=== PATIENT | male | born 1985 | race American Indian/Alaskan Native ===

== ENCOUNTER 2021-02-28 22:15 | Emergency (ER) | payer SELFPAY ==
[2021-03-01 00:14] VITALS: BP 139/71
--- NOTE | 2021-03-01 00:44 | Emergency Department Report ---
ED Rash HPI - HPI Chief Complaint: Skin Rash Stated Complaint: RASH LEFT FOREARM Time Seen by Provider: 03/01/21 00:28 Duration: 5 Days Location: Abdomen, Upper Extremities Suspected Cause: Unknown Rash Symptoms: No Tongue/Oral Swelling, No Breathing Difficulties, No Choking Sensation, No Wheezing/Dyspnea, No Fever Other History: 36-year-old F Armenian male presents emergency department complaining of a pustular/slightly vesicular rash that began on the abdomen while he was in half-way and slowly cleared up and he had been released. Initial presentation was about a year and half ago since that has been having rashes the flareup off and on for unknown reason. 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 He reports very minimal pruritus. The area is irritated with some mild discomfort. No fevers, chills, sweats, no chest pain palpitation hemoptysis hematemesis no hematochezia. ED Review of Systems ROS: Stated complaint: RASH LEFT FOREARM Other details as noted in HPI Comment: All other systems reviewed and negative ED Past Medical Hx - Medications Home Medications: Home Medications Medication Instructions Recorded Confirmed Last Taken Type Chlorhexidine Gluconate [Hibiclens] 10 ml TP BID #240 liquid 03/01/21 Unknown Rx Mupirocin [Bactroban 2%] 15 applic TP TID #30 gm 03/01/21 Unknown Rx Sulfamethoxazole/Trimethoprim 1 each PO BID #20 tablet 03/01/21 Unknown Rx [Bactrim Ds] hydrOXYzine HCL [Atarax] 25 mg PO Q6HR PRN #20 tablet 03/01/21 Unknown Rx Rash Exam - Exam General: Vital signs noted. No distress. Alert and acting appropriately. HEENT: No Periorbital Edema, No Conjuctival Injection, No Chemosis, No Perioral Edema, No Tongue Edema, No Uvular Edema, No Compromised Airway, No Drooling Lungs: Yes Good Air Exchange (Normal Breath Sounds), No Wheezes, No Ronchi, No Stridor, No Cough, No Labored Respirations, No Retractions, No Use of Accessory Muscles, No Other Abnormal Lung Sounds Heart: Yes Regular, No Murmur Skin: Yes Other (Pustular papular rash multiple areas on the arms and abdomen region) Other: Positive: Abdomen Normal, Neurologic Normal, Musculoskeletal Normal ED Course Vital Signs 03/01/21 00:13 Temperature 98.6 F Pulse Rate 86 Respiratory 16 Rate Blood Pressure 139/71 [Left] O2 Sat by Pulse 98 Oximetry Critical care attestation.: If time is entered above; I have spent that time in minutes in the direct care of this critically ill patient, excluding procedure time. ED Disposition Clinical Impression: Rash and nonspecific skin eruption Disposition: - TO HOME OR SELFCARE Is pt being admited?: No Does the pt Need Aspirin: No Condition: Stable Instructions: Rash, Adult, [id number] Prescriptions: hydrOXYzine HCL [Atarax] 25 mg PO Q6HR PRN #20 tablet PRN Reason: Itching Sulfamethoxazole/Trimethoprim [Bactrim Ds] 1 each PO BID #20 tablet Mupirocin [Bactroban 2%] 15 applic TP TID #30 gm Chlorhexidine Gluconate [Hibiclens] 10 ml TP BID #240 liquid Referrals: [facility] [Provider Group] - 3-5 Days
== END 2021-03-01 01:30 | disposition home or self-care (01) ==
LOC: ED 22:15
DX: R21 Rash and other nonspecific skin eruption (principal); Z79.899 Other long term (current) drug therapy
CPT/HCPCS: 99281

== ENCOUNTER 2021-11-18 08:58 | Emergency (ER) | payer SELFPAY ==
[2021-11-18 09:08] VITALS: BP 147/100
--- NOTE | 2021-11-18 09:11 | Emergency Department Report ---
ED Rash HPI - HPI Chief Complaint: Skin Rash Stated Complaint: RASH OUTBREAK ON THE FACE Time Seen by Provider: 11/18/21 09:08 Other History: Patient presents with a skin rash. He actually noticed a rash 6 months ago on the forearms. He was seen for this here and given medication. He states that he was arrested shortly thereafter and spent the last 6 months in long-term. He has been recently released and noticed that he had a rash that he de veloped on his face. The rash on the forearms never completely abated. He states that in long-term he was being given hydrocortisone cream to use on his face but that did not seem to make any difference. He came here for evaluation. There was no change in laundry soap or bath soap that he can determine. Again, the rashes started on the forearms before he went to long-term. He has no pain or itching associated with this. There is no rash on the palms of his hands. Etiology for this is not known. Never had this before. ED Review of Systems ROS: Stated complaint: RASH OUTBREAK ON THE FACE Other details as noted in HPI Comment: All other systems reviewed and negative Constitutional: denies: fever Eyes: denies: vision change ENT: denies: throat pain Respiratory: denies: cough Cardiovascular: denies: chest pain Gastrointestinal: denies: abdominal pain Genitourinary: denies: dysuria Musculoskeletal: denies: back pain Skin: as per HPI Hematological/Lymphatic: denies: easy bruising ED Past Medical Hx - Past Medical History Previous Medical History?: No - Family History Family history: no significant - Medications Home Medications: Home Medications Medication Instructions Recorded Confirmed Last Taken Type Chlorhexidine Gluconate [Hibiclens] 10 ml TP BID #240 liquid 11/18/21 Unknown Rx Mupirocin [Bactroban 2% OINT] 15 applic TP TID #30 gm 11/18/21 Unknown Rx Sulfamethoxazole/Trimethoprim 1 each PO BID #20 tablet 11/18/21 Unknown Rx [Bactrim DS TAB] predniSONE [Deltasone] 50 mg PO QDAY #5 tab 11/18/21 Unknown Rx Rash Exam - Exam General: Vital signs noted. No distress. Alert and acting appropriately. Well developed, well nourished male in no acute distress. He is cooperative and appropriate. HEENT: No Periorbital Edema, No Conjuctival Injection, No Chemosis Lungs: Yes Good Air Exchange, No Wheezes, No Labored Respirations Heart: Yes Regular Skin: Yes Other (Pustular rash to the face bilaterally that involves the na solabial folds and central forehead and brow areas. This extends into the espinosa area and neck area. He has similar rash to arms and hands. Palms are spared), No Bulla(e), No Excoriations ED Course Vital Signs 11/18/21 11/18/21 09:06 09:07 Temperature 98.5 F Pulse Rate 107 H Respiratory 19 Rate Blood Pressure 147/100 O2 Sat by Pulse 99 Oximetry - Reevaluation(s) Reevaluation #1: 11/18/21 09:16 [facility] records reviewed. Patient was discharged. ED Medical Decision Making - Medical Decision Making Patient presents with a pustular versus vesicular rash that is diffuse. It is not unilateral that would be concerning for shingles. It started around to the forearms consistent with folliculitis. He has then been in long-term. It is certainly conceivable that this has persisted. There is no involvement of the palms of the hand that would suggest syphilis. He has no envenomation that he can recall. He has had no change in laundry soap or bath soap that preceded this. I do not believe this represents an allergic rash. Patient was referred for outpatient evaluation and follow-up. Critical Care Time: No Critical care attestation.: If time is entered above; I have spent that time in minutes in the direct care of this critically ill patient, excluding procedure time. ED Disposition Clinical Impression: Folliculitis Disposition: HOME / SELF CARE / HOMELESS Is pt being admited?: No Condition: Stable Prescriptions: Sulfamethoxazole/Trimethoprim [Bactrim DS TAB] 1 each PO BID #20 tablet Mupirocin [Bactroban 2% OINT] 15 applic TP TID #30 gm predniSONE [Deltasone] 50 mg PO QDAY #5 tab Chlorhexidine Gluconate [Hibiclens] 10 ml TP BID #240 liquid Referrals: PONCHO OZUNA MD [Staff Physician] - 3-5 Days
== END 2021-11-18 09:35 | disposition home or self-care (01) ==
LOC: ED 08:58
DX: L73.9 Follicular disorder, unspecified (principal)
CPT/HCPCS: 99282

== ENCOUNTER 2022-01-17 01:15 | Emergency (ER) | payer SELFPAY ==
[2022-01-17 04:48] VITALS: BP 150/73
[2022-01-17] MEDS ORDERED: predniSONE 20 MG TAB PO ONE (04:49)
[2022-01-17] MEDS ORDERED: SULFAMETHOXAZOLE/TRIMETHOPRIM 800/160MG DS TAB PO ONE (04:49)
--- NOTE | 2022-01-17 04:59 | Emergency Department Report ---
ED General Adult HPI - General Chief complaint: Skin Rash Stated complaint: INFLAMMATION ON FACE Source: patient Mode of arrival: Ambulatory Limitations: No Limitations - History of Present Illness Initial comments: Patient is a 37-year-old male with a history of chronic recurrent skin rashes presents to the ED with complaint of acute exacerbation of his chronic maculopapular diffuse itchy mild erythematous maculopapular rashes for over 3 months. Patient states that he has previously been treated for the same rashes in the last 1 year in this ED with medications including antibiotics and oral steroids. Patient states that that initial treatment appeared to have treatment helped these rashes. Patient denies dizziness, syncope, fever, chills, nausea and vomiting, chest pain or shortness of breath. MD Complaint: Diffuse erythematous maculopapular itchy rashes -: Gradual, month(s) (3) Location: head, face, chest, upper extremity Radiation: neck, extremity (bilateral upper extremities) Severity scale (0 -10): 2 Quality: aching, dull Consistency: constant Improves with: none Worsens with: none Associated Symptoms: denies other symptoms, rash (Diffuse mildly itchy maculopapular mild erythematous rashes). denies: confusion, chest pain, cough, diaphoresis, fever/chills, headaches, loss of appetite, malaise, nausea /vomiting, shortness of breath, syncope, weakness Treatments Prior to Arrival: none - Related Data Previous Rx's Medication Instructions Recorded Last Taken Type Chlorhexidine Gluconate [Hibiclens] 10 ml TP BID #240 liquid 11/18/21 Unknown Rx Mupirocin [Bactroban 2% OINT] 15 applic TP TID #30 gm 01/17/22 Unknown Rx Sulfamethoxazole/Trimethoprim 1 each PO BID #20 tablet 01/17/22 Unknown Rx [Bactrim DS TAB] hydrOXYzine PAMOATE [Vistaril] 50 mg PO Q6HR PRN #30 capsule 01/17/22 Unknown Rx predniSONE [Deltasone] 50 mg PO QDAY #5 tab 01/17/22 Unknown Rx Allergies Allergy/AdvReac Type Severity Reaction Status Date / Time No Known Allergies Allergy Unverified 03/01/21 00:14 ED Review of Systems ROS: Stated complaint: INFLAMMATION ON FACE Other details as noted in HPI Constitutional: denies: chills, fever Eyes: denies: eye pain, eye discharge, vision change ENT: denies: ear pain, throat pain Respiratory: denies: cough, shortness of breath, wheezing Cardiovascular: denies: chest pain, palpitations Endocrine: no symptoms reported Gastrointestinal: denies: abdominal pain, nausea, diarrhea Genitourinary: denies: urgency, dysuria Musculoskeletal: denies: back pain, joint swelling, arthralgia Skin: rash (Diffuse itchy mild erythematous maculopapular rashes), change in color, pruritus. 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 - Surgical History Past Surgical History?: No - Medications Home Medications: Home Medications Medication Instructions Recorded Confirmed Last Taken Type Chlorhexidine Gluconate [Hibiclens] 10 ml TP BID #240 liquid 11/18/21 Unknown Rx Mupirocin [Bactroban 2% OINT] 15 applic TP TID #30 gm 01/17/22 Unknown Rx Sulfamethoxazole/Trimethoprim 1 each PO BID #20 tablet 01/17/22 Unknown Rx [Bactrim DS TAB] hydrOXYzine PAMOATE [Vistaril] 50 mg PO Q6HR PRN #30 capsule 01/17/22 Unknown Rx predniSONE [Deltasone] 50 mg PO QDAY #5 tab 01/17/22 Unknown Rx ED Physical Exam - General Limitations: No Limitations General appearance: alert, in no apparent distress - Head Head exam: Present: atraumatic, normocephalic, normal inspection - Eye Eye exam: Present: normal appearance, PERRL, EOMI Pupils: Present: normal accommodation - ENT ENT exam: Present: normal exam, normal orophraynx, mucous membranes moist, TM's normal bilaterally, normal external ear exam - Neck Neck exam: Present: normal inspection, full ROM - Respiratory Respiratory exam: Present: normal lung sounds bilaterally. Absent: respiratory distress, wheezes, rales, rhonchi, chest wall tenderness, accessory muscle use, decreased breath sounds, prolonged expiratory - Cardiovascular Cardiovascular Exam: Present: regular rate, normal rhythm, normal heart sounds. Absent: systolic murmur, diastolic murmur, rubs, gallop - GI/Abdominal GI/Abdominal exam: Present: soft, normal bowel sounds. Absent: distended, tenderness, guarding, rebound, hyperactive bowel sounds, hypoactive bowel sounds, organomegaly - Extremities Exam Extremities exam: Present: normal inspection, full ROM, normal capillary refill - Back Exam Back exam: Present: normal inspection, full ROM. Absent: tenderness, CVA tenderness (R), CVA tenderness (L), muscle spasm, paraspinal tenderness, vertebral tenderness - Neurological Exam Neurological exam: Present: alert, oriented X3, CN II-XII intact, normal gait, reflexes normal - Psychiatric Psychiatric exam: Present: normal affect, normal mood, anxious - Skin Skin exam: Present: warm, dry, intact, rash (Diffuse itchy mild erythematous maculopapular rashes), erythema, urticaria, vesicles. Absent: normal color ED Course Vital Signs 01/17/22 04:37 Temperature 98.2 F Pulse Rate 67 Respiratory 15 Rate Blood Pressure 150/73 [Right] O2 Sat by Pulse 99 Oximetry ED Medical Decision Making - Medical Decision Making This is a 37-year-old male with a history of chronic recurrent skin rashes presents to the ED with complaint of acute exacerbation of his chronic maculopapular diffuse itchy mild erythematous maculopapular rashes for over 3 months. Patient states that he has previously been treated for the same rashes in the last 1 year in this ED with medications including antibiotics and oral steroids. Patient states that that initial treatment appeared to have treatment helped these rashes. In the ED, patient is alert and oriented x3 and is not in any distress. Patient was treated initially with oral steroids and oral antibiotics. Patient was discharged home on medications and advised to follow- up with his primary care physician in 7 to 10 days for reevaluation return to the ED immediately if symptoms get worse. - Differential Diagnosis Return dermatitis; allergic reaction; folliculitis; skin abscess Critical care attestation.: If time is entered above; I have spent that time in minutes in the direct care of this critically ill patient, excluding procedure time. ED Disposition Clinical Impression: Acute folliculitis, Irritant dermatitis Acute allergic reaction Qualifiers: Encounter type: initial encounter Qualified Code(s): T78.40XA - Allergy, unspecified, initial encounter Disposition: HOME / SELF CARE / HOMELESS Is pt being admited?: No Does the pt Need Aspirin: No Condition: Stable Instructions: Allergies, Adult, [id number], Contact Dermatitis, [id number], Folliculitis Additional Instructions: Take medication with food, drink plenty of fluids and follow-up with your primary care physician in 7 to 10 days for reevaluation. Return to the ED immediately if symptoms get worse. Prescriptions: Sulfamethoxazole/Trimethoprim [Bactrim DS TAB] 1 each PO BID #20 tablet Mupirocin [Bactroban 2% OINT] 15 applic TP TID #30 gm predniSONE [Deltasone] 50 mg PO QDAY #5 tab hydrOXYzine PAMOATE [Vistaril] 50 mg PO Q6HR PRN #30 capsule PRN Reason: Itching Referrals: ROSALINA SIMMOSN MD [Staff Physician] - 7-10 days [facility] [Provider Group] - 3-5 Days PRIMARY CAREMD [Primary Care Provider] - 7-10 days Time of Disposition: 05:17 Print Language: URDU
== END 2022-01-17 05:56 | disposition home or self-care (01) ==
LOC: ED 01:15
DX: T78.40XA Allergy, unspecified, initial encounter (principal); L73.9 Follicular disorder, unspecified; X58.XXXA Exposure to other specified factors, initial encounter; Z79.899 Other long term (current) drug therapy
CPT/HCPCS: 99282